=== PATIENT | female | born 1950 | race Caucasian/White ===

== ENCOUNTER 2019-01-02 10:27 | Inpatient (IN) | payer OTHER ==
[~2019-01-02 10:27] MED LIST: AMOX1TAB64 PO; BACL20TA PO; CITA40TA5 PO; DICL75TA3 PO; FENTANYL; HYDR-3307 PO; LEVO150T5 PO; METH500T7 PO; NITR100C PO; PROM50TA4 PO; ZOLP-413 PO
[2019-01-02] MEDS ORDERED: SODIUM CHLORIDE 0.9% 1,000 ML IV SCH (11:47)
[2019-01-02] MEDS ORDERED: MORPHINE SULFATE 4 MG/ML, 1ML IVPush PRN ×3 (12:00)
[2019-01-02] MEDS ORDERED: ONDANSETRON 2MG/ML, 2ML IVPush PRN (12:00)
[2019-01-02] MEDS ORDERED: SCOPOLAMINE PATCH, 1.5MG PATCH.TD72 TD SCH (12:00)
[2019-01-02] MEDS ORDERED: ATROPINE OPHTH SOLN 1%, 5ML BC PRN (12:00)
[2019-01-02] MEDS ORDERED: LORazepam 2 MG/ML, 1ML IVPush PRN (12:00)
[2019-01-02] MEDS ORDERED: LORazepam 2 MG/ML, 1ML IVPush ONE (13:00)
[2019-01-02] MEDS ORDERED: MORPHINE SULFATE 4 MG/ML, 1ML IVPush ONE (13:00)
[2019-01-02] MEDS: LORazepam 10 MG in SODIUM CHLORIDE 0.9% 245 ML IV PRN ×2 (14:47→18:13)
[2019-01-02] MEDS ORDERED: HYDROmorphone 10 MG in SODIUM CHLORIDE 0.9% 245 ML IVPB PRN (16:39)
[2019-01-02] MEDS ORDERED: PLEASE ENTER HEIGHT AND WEIGHT MC SCH (17:30)
== END 2019-01-02 22:45 | disposition expired | DRG 922 ==
LOC: CCU 11:37 → 3NW 16:34
PROVIDERS: ADMIT Internal Medicine; ATTEND Internal Medicine
DX: T79.A3XA Traumatic compartment syndrome of abdomen, initial encounter (principal); A41.9 Sepsis, unspecified organism; J96.00 Acute respiratory failure, unspecified whether with hypoxia or hypercapnia; R65.21 Severe sepsis with septic shock; I63.9 Cerebral infarction, unspecified; K65.0 Generalized (acute) peritonitis; G81.91 Hemiplegia, unspecified affecting right dominant side; Z99.11 Dependence on respirator [ventilator] status; X58.XXXA Exposure to other specified factors, initial encounter; E78.5 Hyperlipidemia, unspecified; G83.21 Monoplegia of upper limb affecting right dominant side; I10 Essential (primary) hypertension; J44.9 Chronic obstructive pulmonary disease, unspecified; G89.29 Other chronic pain; M54.9 Dorsalgia, unspecified; Z51.5 Encounter for palliative care; Z90.710 Acquired absence of both cervix and uterus; Z90.49 Acquired absence of other specified parts of digestive tract; Z93.3 Colostomy status
CPT/HCPCS: G0378; J1170; J2060; J2270; J7050